=== PATIENT | female | born 2005 | race African-American/Black ===

== ENCOUNTER 2025-02-04 05:45 | Emergency (ER) | payer MEDICAID ==
[~2025-02-04] VITALS: Ht 170.2 cm; Wt 95.8 kg
[2025-02-04 05:49] VITALS: TEMP 36.9; O2SAT 100
[2025-02-04 06:07] VITALS: BP 128/77; PULSE 74; RESP 14; O2SAT 100
[2025-02-04 06:32] LABS: BASOPHILS % 1.2 % (0.0-2.0); EOSINOPHILS % 1.0 % (0.0-5.0); HEMATOCRIT. 36.3 % (36.0-48.0); HEMOGLOBIN. 12.0 g/dL (12.0-16.0); LYMPHOCYTES % 37.6 % (20.0-50.0); MEAN PLATELET VOLUME 8.6 fl (7.4-10.4); MONOCYTES % 8.3 % (2.0-8.0); NEUTROPHILS % 51.9 % (40.0-76.0); PLATELET 298 x1000/uL (130-400); RED BLOOD CELL COUNT 4.05 mill/uL (4.2-5.4); RED CELL DISTRIBUTION WIDTH 13.9 % (11.6-14.6)
[2025-02-04 06:45] LABS: CREATININE 0.8 mg/dL (0.6-1.0)
[2025-02-04 06:46] LABS: UREA NITROGEN BLOOD 10 mg/dL (9-23)
[2025-02-04 06:47] LABS: B-HCG QUANTITATIVE 130 mIU/mL (<6)
== END 2025-02-04 08:34 | disposition home or self-care (01) ==
LOC: ER 05:45
DX: O20.0 Threatened abortion (principal); Z3A.01 Less than 8 weeks gestation of pregnancy
CPT/HCPCS: 36415; 76801; 80048; 84702; 85025; 86850; 86900; 99284